=== PATIENT | male | born 1990 | race Caucasian/White ===

== ENCOUNTER 2019-08-06 19:18 | Emergency (ER) | payer MEDICAID ==
[~2019-08-06] VITALS: Ht 177.8 cm; Wt 90.9 kg
[2019-08-06 19:20] VITALS: Ht 177.8 cm; Wt 90.9 kg
[2019-08-06 20:55] LABS: APTT 27.1 SECONDS (22.8-39.4); INR 1.01 (0.85-1.17); PROTIME 13.2 SECONDS (11.6-15.0)
[2019-08-06 20:57] LABS: CALC OSMOLALITY 274 mosm/kg (275-300); CARBON DIOXIDE 23.7 mmol/L (21.0-32.0); CHLORIDE - SERUM 103 mmol/L (98-107); CREATININE - SERUM 0.9 mg/dL (0.6-1.3); GLUCOSE 95 mg/dL (74-106); POTASSIUM - SERUM 3.7 mmol/L (3.5-5.1); SODIUM 138 mmol/L (136-145); UREA NITROGEN 10 mg/dL (7-18); eGFR NON AFRICAN AMERICAN > 90 mL/min (90-120)
[2019-08-06 21:09] LABS: ALBUMIN 4.2 g/dL (3.4-5.0); ALKALINE PHOSPHATASE 55 U/L (30-120); ALT (SGPT) 33 U/L (10-68); AMYLASE - SERUM 49 U/L (25-115); BILIRUBIN - TOTAL 0.86 mg/dL (0.2-1.3); HEMOGLOBIN 16.8 g/dL (13.5-17.5); LIPASE 108 U/L (73-393); MCH 31.1 pg (26.0-34.0); MCV 88.7 fL (80.0-100.0); MEAN PLATELET VOLUME 9.9 fL (7.4-10.4); PLATELET COUNT 226 10x3/uL (130-400); PROTEIN - SERUM 7.5 g/dL (6.4-8.2); RBC 5.41 10x6/uL (4.20-6.10); RDW 12.9 % (11.5-14.5); WBC 20.6 10x3/uL (4.8-10.8)
[2019-08-06] MEDS ORDERED: CYCLOBENZAPRINE10 MG PO (21:23)
[2019-08-06 21:36] LABS: LYMPHOCYTES 13 % (15-50); MONOCYTES 6 % (2-11); NEUTROPHILS 81 % (40-80); PLATELET ESTIMATE NORMAL
[2019-08-06 21:56] VITALS: BP 127/73
== END 2019-08-06 21:56 | disposition home or self-care (01) ==
LOC: D.ER 19:18
PROVIDERS: Family Medicine
DX: S16.1XXA Strain of muscle, fascia and tendon at neck level, initial encounter (principal); S00.93XA Contusion of unspecified part of head, initial encounter; V89.2XXA Person injured in unspecified motor-vehicle accident, traffic, initial encounter; K21.9 Gastro-esophageal reflux disease without esophagitis; M54.30 Sciatica, unspecified side